=== PATIENT | female | born 1995 | race Caucasian/White ===

== ENCOUNTER → 2022-05-14 | Outpatient (CLI) | payer OTHER | LOC: LAB 10:49 → LAB SHORT 10:49 → RAD SHORT 10:49 | PROVIDERS: Advanced Practice Midwife | DX: Z01.419 Encounter for gynecological examination (general) (routine) without abnormal findings (principal) | CPT/HCPCS: G0123 ==

== ENCOUNTER → 2022-10-30 | Outpatient (CLI) | payer OTHER | END | disposition home or self-care (01) | LOC: LAB 15:25 → LAB SHORT 15:25 | DX: Z34.03 Encounter for supervision of normal first pregnancy, third trimester (principal) | CPT/HCPCS: 87081; 87150 ==

== ENCOUNTER 2022-11-17 08:51 | Inpatient (IN) | payer OTHER ==
[2022-11-17] VITALS (18 sets, daily range): BP systolic 102–124; BP diastolic 55–70
[~2022-11-17] VITALS: Ht 162.6 cm; Wt 99.7 kg
[2022-11-17 09:52] LABS: BASOPHILS ABSOLUTE AUTO 0.06 K/mm3 (0.00-0.23); BASOPHILS PERCENT AUTO 0 % (0-2); EOSINOPHILS ABSOLUTE AUTO 0.22 K/mm3 (0.00-0.68); EOSINOPHILS PERCENT AUTO 2 % (0-6); Hematocrit 33.7 % (33.0-51.0); Hemoglobin 11.6 g/dL (11.5-16.0); IMMATURE GRAN ABSOLUTE AUTO 0.21 K/mm3 (0.00-0.10); IMMATURE GRAN PERCENT AUTO 2 % (0-1); LYMPHOCYTES ABSOLUTE AUTO 2.64 K/mm3 (0.84-5.20); LYMPHOCYTES PERCENT AUTO 19 % (21-46); MONOCYTES ABSOLUTE AUTO 1.28 K/mm3 (0.16-1.47); MONOCYTES PERCENT AUTO 9 % (4-13); Mean Corpuscular HGB 28.4 pg (26.0-34.0); Mean Corpuscular HGB Conc 34.4 g/dL (31.5-36.5); Mean Corpuscular Volume 83 fL (80-100); Mean Platelet Volume 9.7 fL (9.1-12.4); NEUTROPHILS ABSOLUTE AUTO 9.81 K/mm3 (1.96-9.15); NEUTROPHILS PERCENT AUTO 69 % (41-73); Platelet Count 295 K/mm3 (150-400); RDW Coefficient Variation 13.3 % (11.7-14.2); RDW Standard Deviation 39.6 fL (35.1-46.3); Red Blood Cell Count 4.08 M/mm3 (3.80-5.20); White Blood Cell Count 14.22 K/mm3 (4.00-11.30)
[2022-11-17] MEDS ORDERED: PRENATAL TABLE1 EAC2 PO (10:13)
[2022-11-17] MEDS ORDERED: AMPDEX5 PO (10:14)
[2022-11-17] MEDS ORDERED: ASPI81CH PO (10:15)
[2022-11-17] MEDS ORDERED: Prozac20 MG PO (19:29)
--- NOTE | 2022-11-17 19:46 | NUR ---
pt was in shower with Support standing by. No further needs at this time.
[2022-11-18] VITALS (34 sets, daily range): BP systolic 92–142; BP diastolic 50–81
--- NOTE | 2022-11-18 21:15 | NUR ---
Pt has no needs at this time.
[2022-11-19 08:04] VITALS: BP 116/69
[2022-11-19] MEDS ORDERED: IBU800 MG PO (11:39)
[2022-11-19 12:54] VITALS: BP 126/76
--- NOTE | 2022-11-19 13:01 | NUR ---
DISCHARGE TEACHING COMPLETED, QUESTIONS ANSWERED, PT VERBALIZED UNDERSTANDING PP INSTRUCTION AND FOLLOW UP APPOINTMENTS. PLAN TO [facility]CHARGE [facility]
--- NOTE | 2022-11-19 14:27 | NUR ---
MEDICATED WITH IBUPROFEN 800MG PRIOR TO DISCHARGING, PT HEADING TO [facility] IF IT IS NOT READY WILL [facility] O[facility] MOTRIN AND TYLENOL PT STATES SHE READY TO BE DISCHARGED NOW
== END 2022-11-19 14:30 | disposition home or self-care (01) | DRG 806 ==
LOC: BC 08:51 → OBS 08:51 → BC 09:21
PROVIDERS: ADMIT Advanced Practice Midwife
PROC: 10E0XZZ Delivery of Products of Conception, External Approach (ICD-10-PCS; principal; 2022-11-18)
PROC: 3E0R3BZ Introduction of Anesthetic Agent into Spinal Canal, Percutaneous Approach (ICD-10-PCS; 2022-11-18)
PROC: 00HU33Z Insertion of Infusion Device into Spinal Canal, Percutaneous Approach (ICD-10-PCS; 2022-11-18)
DX: O42.02 Full-term premature rupture of membranes, onset of labor within 24 hours of rupture (principal); O99.324 Drug use complicating childbirth; Z37.0 Single live birth; O69.1XX0 Labor and delivery complicated by cord around neck, with compression, not applicable or unspecified; O99.824 Streptococcus B carrier state complicating childbirth; O99.344 Other mental disorders complicating childbirth; F12.90 Cannabis use, unspecified, uncomplicated; O99.214 Obesity complicating childbirth; E66.01 Morbid (severe) obesity due to excess calories; O77.0 Labor and delivery complicated by meconium in amniotic fluid; O99.334 Smoking (tobacco) complicating childbirth; O71.82 Other specified trauma to perineum and vulva; F41.8 Other specified anxiety disorders; F17.210 Nicotine dependence, cigarettes, uncomplicated; Z3A.39 39 weeks gestation of pregnancy; Z90.89 Acquired absence of other organs; Z98.890 Other specified postprocedural states; Z79.82 Long term (current) use of aspirin; Z79.899 Other long term (current) drug therapy
CPT/HCPCS: 36415; 51702; 59025; 85025; 86850; 86900; 86901; A9270; J0290; J1885; J2590; J3010; J7120